=== PATIENT | male | born 1940 | race Caucasian/White ===

== ENCOUNTER 2016-11-28 21:27 | Inpatient (IN) | payer MEDICARE, OTHER ==
[~2016-11-28] VITALS: Ht 195.6 cm; Wt 93.1 kg
[2016-11-28 22:25] LABS: HEMOGLOBIN 15.6 g/dL (13.7-18.0)
[2016-11-28 22:38] LABS: BLOOD UREA NITROGEN 8 mg/dL (7-18)
[2016-11-28 22:41] LABS: ASPARTATE AMINO TRANSFERASE 13 U/L (15-37)
[2016-11-28] MEDS ORDERED: SODIUM CHLORIDE 0.9% 1,000ML IVBOLUS ONE (23:00)
[2016-11-28] MEDS ORDERED: LEVO100T5 PO (23:10)
[2016-11-29] VITALS (7 sets, daily range): BP systolic 94–116; BP diastolic 61–87
[2016-11-29] MEDS ORDERED: NS + 20MEQ KCL 1,000 ML IV SCH (00:09)
[2016-11-29] MEDS: NICOTINE 14MG/24 HR PATCH.TD24 TD SCH (00:30)
[2016-11-29] MEDS ORDERED: DOCUSATE 100 MG CAPSULE PO PRN (00:30)
[2016-11-29] MEDS ORDERED: ONDANSETRON 2MG/ML, 2ML IVP PRN (00:30)
[2016-11-29] MEDS ORDERED: BISACODYL 10 MG SUPP PR PRN (00:30)
[2016-11-29] MEDS ORDERED: ACETAMINOPHEN 325 MG TABLET PO PRN (00:30)
[2016-11-29 06:18] LABS: BLOOD UREA NITROGEN 6 mg/dL (7-18); PROSTATE SPECIFIC ANTIGEN 0.02 ng/mL (0.00-4.00)
[2016-11-29] MEDS ORDERED: DEXTROSE 4 GM TAB.CHEW PO PRN (08:30)
[2016-11-29] MEDS ORDERED: GLUCAGON 1 MG IM PRN (08:30)
[2016-11-29] MEDS ORDERED: LEVOTHYROXINE 100 MCG TABLET PO SCH (09:00)
[2016-11-29] MEDS: SODIUM CHLORIDE FLUSH 10ML SYR IVF SCH ×2 (09:10→21:19)
[2016-11-29] MEDS: NEOSPORIN OINT, 15GM TP SCH ×2 (13:02→21:18)
[2016-11-29] MEDS: DEXTROSE 50%, 50ML SYRINGE IVPush PRN (13:03)
[2016-11-29] MEDS: D5%-0.45% NACL 1,000 ML IV SCH (13:49)
[2016-11-30] MEDS: NICOTINE 14MG/24 HR PATCH.TD24 TD SCH ×2 (00:30→20:34)
[2016-11-30] MEDS: D5%-0.45% NACL 1,000 ML IV SCH ×3 (01:06→20:36)
[2016-11-30 01:58] VITALS: BP 112/61
[2016-11-30] MEDS: LEVOTHYROXINE 100 MCG TABLET PO SCH (05:42)
[2016-11-30 06:12] LABS: HEMOGLOBIN 15.2 g/dL (13.7-18.0)
[2016-11-30 06:26] LABS: BLOOD UREA NITROGEN 3 mg/dL (7-18)
[2016-11-30 07:48] VITALS: BP 125/50
[2016-11-30] MEDS: SODIUM CHLORIDE FLUSH 10ML SYR IVF SCH ×2 (07:51→20:35)
[2016-11-30] MEDS: NEOSPORIN OINT, 15GM TP SCH ×2 (07:51→20:34)
[2016-11-30 12:30] VITALS: BP 97/59
[2016-11-30 20:12] VITALS: BP 99/62
[2016-11-30 20:28] VITALS: BP 132/89
[2016-12-01 03:25] VITALS: BP 106/56
[2016-12-01 03:28] VITALS: BP 159/90
[2016-12-01 06:03] LABS: HEMOGLOBIN 14.3 g/dL (13.7-18.0)
[2016-12-01] MEDS: D5%-0.45% NACL 1,000 ML IV SCH ×2 (06:13→17:25)
[2016-12-01] MEDS: LEVOTHYROXINE 100 MCG TABLET PO SCH (06:14)
[2016-12-01 06:38] LABS: BLOOD UREA NITROGEN 6 mg/dL (7-18)
[2016-12-01 06:41] VITALS: BP 110/56
[2016-12-01] MEDS: NEOSPORIN OINT, 15GM TP SCH ×2 (10:17→20:59)
[2016-12-01] MEDS: CEFTRIAXONE PMX 1GM/50ML 50 ML IV SCH (10:17)
[2016-12-01] MEDS: SODIUM CHLORIDE FLUSH 10ML SYR IVF SCH ×2 (10:18→21:01)
[2016-12-01 13:17] VITALS: BP 115/62
[2016-12-01 19:56] VITALS: BP 97/57
[2016-12-01] MEDS: NICOTINE 14MG/24 HR PATCH.TD24 TD SCH (20:59)
[2016-12-02 02:18] VITALS: BP 116/68
[2016-12-02] MEDS: D5%-0.45% NACL 1,000 ML IV SCH ×2 (03:36→13:30)
[2016-12-02] MEDS: LEVOTHYROXINE 100 MCG TABLET PO SCH (05:42)
[2016-12-02 06:05] LABS: HEMOGLOBIN 14.4 g/dL (13.7-18.0)
[2016-12-02 06:28] LABS: ASPARTATE AMINO TRANSFERASE 15 U/L (15-37); BLOOD UREA NITROGEN 8 mg/dL (7-18)
[2016-12-02 08:00] VITALS: BP 112/57
[2016-12-02] MEDS: SODIUM CHLORIDE FLUSH 10ML SYR IVF SCH ×2 (09:00→21:14)
[2016-12-02] MEDS ORDERED: MIDAZOLAM 1 MG/ML, 5ML ONE ×2 (09:06→10:10)
[2016-12-02] MEDS ORDERED: FENTANYL PF 100 MCG/2ML ONE ×2 (09:06→09:47)
[2016-12-02] MEDS: CEFTRIAXONE PMX 1GM/50ML 50 ML IV SCH (11:19)
[2016-12-02] MEDS: NEOSPORIN OINT, 15GM TP SCH ×2 (11:20→21:14)
[2016-12-02] MEDS ORDERED: GADOBUTROL 10 MMOL/10 ML PFS ONE (11:55)
[2016-12-02 16:10] VITALS: BP 96/50
[2016-12-02 20:23] VITALS: BP 109/61
[2016-12-02] MEDS: NICOTINE 14MG/24 HR PATCH.TD24 TD SCH (21:00)
[2016-12-02] MEDS: HYDROcodone/APAP 5/325 TABLET PO PRN (21:13)
[2016-12-03 00:45] VITALS: BP_SYST 68; BP_SYST 70; BP_SYST 76; BP_DIAS 34; BP_DIAS 36; BP_DIAS 42
[2016-12-03 02:48] VITALS: BP 96/58
[2016-12-03] MEDS: LEVOTHYROXINE 100 MCG TABLET PO SCH (05:06)
[2016-12-03] MEDS: D5%-0.45% NACL 1,000 ML IV SCH ×2 (05:06→13:00)
[2016-12-03 05:43] LABS: HEMOGLOBIN 13.1 g/dL (13.7-18.0)
[2016-12-03 05:52] LABS: BLOOD UREA NITROGEN 9 mg/dL (7-18)
[2016-12-03 07:14] VITALS: BP 114/56
[2016-12-03] MEDS: CEFTRIAXONE PMX 1GM/50ML 50 ML IV SCH (07:46)
[2016-12-03] MEDS ORDERED: SODIUM CHLORIDE 0.9%, 500ML IVBOLUS ONE (08:00)
[2016-12-03] MEDS: NEOSPORIN OINT, 15GM TP SCH ×2 (09:00→20:39)
[2016-12-03] MEDS: SODIUM CHLORIDE FLUSH 10ML SYR IVF SCH ×2 (09:00→20:39)
[2016-12-03 13:05] VITALS: BP 122/64
[2016-12-03 19:36] VITALS: BP 101/61
[2016-12-03] MEDS: NICOTINE 14MG/24 HR PATCH.TD24 TD SCH (20:39)
[2016-12-04] MEDS: D5%-0.45% NACL 1,000 ML IV SCH ×3 (00:07→21:35)
[2016-12-04 03:20] VITALS: BP 135/74
[2016-12-04] MEDS: LEVOTHYROXINE 100 MCG TABLET PO SCH (06:16)
[2016-12-04 06:47] VITALS: BP 108/50
[2016-12-04 06:51] LABS: HEMOGLOBIN 14.4 g/dL (13.7-18.0)
[2016-12-04 06:58] LABS: BLOOD UREA NITROGEN 8 mg/dL (7-18)
[2016-12-04] MEDS: CEFTRIAXONE PMX 1GM/50ML 50 ML IV SCH (08:47)
[2016-12-04] MEDS: DRONABINOL 5 MG CAPSULE PO SCH ×2 (08:47→21:35)
[2016-12-04] MEDS: NEOSPORIN OINT, 15GM TP SCH ×2 (08:48→21:35)
[2016-12-04] MEDS: SODIUM CHLORIDE FLUSH 10ML SYR IVF SCH ×2 (08:48→21:35)
[2016-12-04 14:00] VITALS: BP 107/68
[2016-12-04 16:44] LABS: HIV 1&2 ANTIBODY SCREEN Nonreactive (Nonreactive); HIV-1 p24 ANTIGEN Nonreactive (Nonreactive)
[2016-12-04 19:38] VITALS: BP 110/66
[2016-12-04] MEDS: NICOTINE 14MG/24 HR PATCH.TD24 TD SCH (21:35)
[2016-12-05 04:17] VITALS: BP 99/63
[2016-12-05 06:04] LABS: HEMOGLOBIN 13.5 g/dL (13.7-18.0)
[2016-12-05] MEDS: LEVOTHYROXINE 100 MCG TABLET PO SCH (06:05)
[2016-12-05 06:25] LABS: BLOOD UREA NITROGEN 12 mg/dL (7-18)
[2016-12-05 08:03] VITALS: BP 103/64
[2016-12-05 09:05] VITALS: BP 111/71
[2016-12-05 09:10] VITALS: BP 100/53
[2016-12-05] MEDS: SODIUM CHLORIDE FLUSH 10ML SYR IVF SCH ×2 (09:31→21:48)
[2016-12-05] MEDS: NEOSPORIN OINT, 15GM TP SCH ×2 (09:31→21:47)
[2016-12-05] MEDS: DRONABINOL 5 MG CAPSULE PO SCH ×2 (09:31→21:47)
[2016-12-05] MEDS: SODIUM CHLORIDE 0.9% 1,000 ML IV SCH (12:53)
[2016-12-05 15:08] VITALS: BP 91/56
[2016-12-05 20:10] VITALS: BP 97/57
[2016-12-05] MEDS: NICOTINE 14MG/24 HR PATCH.TD24 TD SCH (21:00)
[2016-12-06 00:37] VITALS: BP 103/58
[2016-12-06] MEDS: SODIUM CHLORIDE 0.9% 1,000 ML IV SCH ×2 (01:42→21:29)
[2016-12-06 05:51] LABS: BLOOD UREA NITROGEN 13 mg/dL (7-18)
[2016-12-06 05:54] LABS: HEMOGLOBIN 14.4 g/dL (13.7-18.0)
[2016-12-06] MEDS: LEVOTHYROXINE 100 MCG TABLET PO SCH (06:23)
[2016-12-06 08:32] VITALS: BP_SYST 109; BP_SYST 116; BP_DIAS 65; BP_DIAS 73
[2016-12-06] MEDS: SODIUM CHLORIDE FLUSH 10ML SYR IVF SCH ×2 (09:21→21:29)
[2016-12-06] MEDS: NEOSPORIN OINT, 15GM TP SCH ×2 (09:21→21:32)
[2016-12-06] MEDS: DRONABINOL 5 MG CAPSULE PO SCH ×2 (09:21→21:00)
[2016-12-06] MEDS ORDERED: VANCOMYCIN PER PHARMACY MC PRN (12:30)
[2016-12-06] MEDS: PIPERACILLIN/TAZO/PMX 3.375GM 50 ML IV SCH ×2 (12:30→18:30)
[2016-12-06] MEDS ORDERED: PHARMACOKINETIC CONSULTATION MC ONE (13:00)
[2016-12-06] MEDS ORDERED: PHARMACOKINETIC MONITORING MC PRN (13:00)
[2016-12-06] MEDS: VANCOMYCIN 1,800 MG in SODIUM CHLORIDE 0.9% 250 ML IV SCH (14:58)
[2016-12-06 15:43] VITALS: BP 82/46
[2016-12-06 15:46] LABS: ABG COLLECTION SITE LEFT RADIAL; COLLATERAL CIRCULATION TESTING NORMAL
[2016-12-06 18:24] VITALS: BP 97/61
[2016-12-06] MEDS: NICOTINE 14MG/24 HR PATCH.TD24 TD SCH (21:00)
[2016-12-06 21:25] VITALS: BP 84/53
[2016-12-06] MEDS: LEVETIRACETAM 1,000 MG in SODIUM CHLORIDE 0.9% 100 ML IV SCH (23:50)
[2016-12-07] MEDS: PIPERACILLIN/TAZO/PMX 3.375GM 50 ML IV SCH ×4 (00:50→18:21)
[2016-12-07 02:23] VITALS: BP 89/48
[2016-12-07 05:24] VITALS: BP 95/59
[2016-12-07 05:52] LABS: BLOOD UREA NITROGEN 13 mg/dL (7-18)
[2016-12-07] MEDS: LEVOTHYROXINE 100 MCG TABLET PO SCH (06:04)
[2016-12-07 06:10] LABS: HEMOGLOBIN 13.3 g/dL (13.7-18.0)
[2016-12-07 06:34] VITALS: BP 94/57
[2016-12-07] MEDS: DRONABINOL 5 MG CAPSULE PO SCH ×2 (09:00→21:00)
[2016-12-07] MEDS: SODIUM CHLORIDE 0.9% 1,000 ML IV SCH ×2 (09:01→22:16)
[2016-12-07] MEDS: NEOSPORIN OINT, 15GM TP SCH ×2 (09:01→22:16)
[2016-12-07] MEDS: SODIUM CHLORIDE FLUSH 10ML SYR IVF SCH ×2 (09:01→22:17)
[2016-12-07] MEDS: VANCOMYCIN 1,800 MG in SODIUM CHLORIDE 0.9% 250 ML IV SCH (09:01)
[2016-12-07] MEDS: LEVETIRACETAM 1,000 MG in SODIUM CHLORIDE 0.9% 100 ML IV SCH ×2 (12:05→23:43)
[2016-12-07] MEDS ORDERED: SODIUM CHLORIDE 0.9% 1,000 ML IV SCH (12:30)
[2016-12-07 12:42] VITALS: BP 93/57
[2016-12-07 19:36] VITALS: BP 96/60
[2016-12-07] MEDS ORDERED: DEXTROSE 4 GM TAB.CHEW PO PRN (21:00)
[2016-12-07] MEDS ORDERED: GLUCAGON 1 MG IM PRN (21:00)
[2016-12-07] MEDS: NICOTINE 14MG/24 HR PATCH.TD24 TD SCH (21:00)
[2016-12-07] MEDS: DEXTROSE 50%, 50ML SYRINGE IVPush PRN (22:18)
[2016-12-08] MEDS: PIPERACILLIN/TAZO/PMX 3.375GM 50 ML IV SCH ×4 (00:35→21:55)
[2016-12-08] MEDS: VANCOMYCIN 1,800 MG in SODIUM CHLORIDE 0.9% 250 ML IV SCH ×2 (02:22→20:36)
[2016-12-08 03:24] VITALS: BP 96/55
[2016-12-08 05:25] LABS: BLOOD UREA NITROGEN 13 mg/dL (7-18)
[2016-12-08 06:40] VITALS: BP 98/60
[2016-12-08] MEDS: DEXTROSE 50%, 50ML SYRINGE IVPush PRN ×2 (08:21→12:40)
[2016-12-08] MEDS: DRONABINOL 5 MG CAPSULE PO SCH ×2 (09:00→20:40)
[2016-12-08] MEDS: SODIUM CHLORIDE FLUSH 10ML SYR IVF SCH ×2 (10:26→20:36)
[2016-12-08] MEDS: NEOSPORIN OINT, 15GM TP SCH ×2 (10:40→20:37)
[2016-12-08] MEDS: LEVOTHYROXINE 100 MCG TABLET PO SCH (10:40)
[2016-12-08 12:37] VITALS: BP 102/64
[2016-12-08] MEDS: LEVETIRACETAM 1,000 MG in SODIUM CHLORIDE 0.9% 100 ML IV SCH ×2 (13:16→23:40)
[2016-12-08] MEDS: SODIUM CHLORIDE 0.9% 1,000 ML IV SCH (13:16)
[2016-12-08 19:14] VITALS: BP 101/60
[2016-12-08] MEDS: NICOTINE 14MG/24 HR PATCH.TD24 TD SCH ×2 (20:37→20:54)
[2016-12-09 02:44] VITALS: BP 99/60
[2016-12-09] MEDS: PIPERACILLIN/TAZO/PMX 3.375GM 50 ML IV SCH ×4 (02:52→22:04)
[2016-12-09 06:36] VITALS: BP 105/55
[2016-12-09 07:01] LABS: HEMOGLOBIN 13.2 g/dL (13.7-18.0)
[2016-12-09 07:03] LABS: BLOOD UREA NITROGEN 12 mg/dL (7-18)
[2016-12-09] MEDS: DRONABINOL 5 MG CAPSULE PO SCH ×2 (08:49→21:00)
[2016-12-09] MEDS: SODIUM CHLORIDE FLUSH 10ML SYR IVF SCH ×2 (08:49→22:03)
[2016-12-09] MEDS: NEOSPORIN OINT, 15GM TP SCH ×2 (09:22→22:03)
[2016-12-09] MEDS: LEVOTHYROXINE 100 MCG TABLET PO SCH (09:22)
[2016-12-09] MEDS: LEVETIRACETAM 1,000 MG in SODIUM CHLORIDE 0.9% 100 ML IV SCH (12:00)
[2016-12-09 12:34] VITALS: BP 94/55
[2016-12-09] MEDS ORDERED: VANCOMYCIN 1,800 MG in SODIUM CHLORIDE 0.9% 250 ML IV SCH (14:00)
[2016-12-09] MEDS ORDERED: VANCOMYCIN 2,000 MG in SODIUM CHLORIDE 0.9% 500 ML IV SCH (14:30)
[2016-12-09 18:47] VITALS: BP 98/57
[2016-12-09] MEDS: NICOTINE 14MG/24 HR PATCH.TD24 TD SCH (21:00)
[2016-12-10] MEDS: LEVETIRACETAM 1,000 MG in SODIUM CHLORIDE 0.9% 100 ML IV SCH ×3 (00:31→23:18)
[2016-12-10] MEDS ORDERED: POTASSIUM CHLORIDE 20 MEQ PACKET NG ONE (02:30)
[2016-12-10 02:48] VITALS: BP 79/49
[2016-12-10 04:12] LABS: ABG COLLECTION SITE LEFT RADIAL; COLLATERAL CIRCULATION TESTING NORMAL
[2016-12-10] MEDS: PIPERACILLIN/TAZO/PMX 3.375GM 50 ML IV SCH ×5 (04:48→23:50)
[2016-12-10] MEDS ORDERED: MIDAZOLAM HCL 25 MG in SODIUM CHLORIDE 0.9% 245 ML IV PRN (05:34)
[2016-12-10] MEDS ORDERED: NOREPINEPHRINE 1 MG/ML, 4ML ONE (05:38)
[2016-12-10] MEDS: NOREPINEPHRINE 4 MG in SODIUM CHLORIDE 0.9% 246 ML IV PRN ×3 (05:45→23:18)
[2016-12-10] MEDS ORDERED: SODIUM CHLORIDE 0.9% 1,000ML IVBOLUS ONE (06:00)
[2016-12-10] MEDS ORDERED: PHARMACY MAY ADJ FOR RENAL FX MC SCH (06:00)
[2016-12-10] MEDS ORDERED: LIDOCAINE-MPF 1%, 2ML ENDO PRN (06:00)
[2016-12-10 08:12] LABS: FIO2 100 %
[2016-12-10 08:13] LABS: ABG COLLECTION SITE RIGHT RADIAL; COLLATERAL CIRCULATION TESTING NORMAL
[2016-12-10 08:35] LABS: BLOOD UREA NITROGEN 17 mg/dL (7-18)
[2016-12-10] MEDS: SODIUM CHLORIDE FLUSH 10ML SYR IVF SCH ×2 (09:00→20:25)
[2016-12-10] MEDS: NEOSPORIN OINT, 15GM TP SCH ×2 (09:00→22:19)
[2016-12-10] MEDS: DRONABINOL 5 MG CAPSULE PO SCH ×2 (09:34→21:00)
[2016-12-10] MEDS: LEVOTHYROXINE 100 MCG TABLET PO SCH (09:34)
[2016-12-10] MEDS ORDERED: VECURONIUM 10 MG ONE (10:59)
[2016-12-10] MEDS ORDERED: MIDAZOLAM 1 MG/ML, 5ML ONE (10:59)
[2016-12-10] MEDS ORDERED: MIDAZOLAM HCL IV PRN (11:30)
[2016-12-10] MEDS ORDERED: SODIUM CHLORIDE 0.9% IV PRN (11:30)
[2016-12-10] MEDS: NICOTINE 14MG/24 HR PATCH.TD24 TD SCH (20:25)
[2016-12-11] MEDS: HYDROcodone/APAP 5/325 TABLET PO PRN ×2 (02:20→09:12)
[2016-12-11 04:01] VITALS: BP 100/53
[2016-12-11 05:01] LABS: HEMOGLOBIN 12.4 g/dL (13.7-18.0)
[2016-12-11 05:13] LABS: BLOOD UREA NITROGEN 20 mg/dL (7-18)
[2016-12-11] MEDS: POLYETHYLENE GLYCOL 17 GM PACKET PO PRN (05:25)
[2016-12-11] MEDS: PIPERACILLIN/TAZO/PMX 3.375GM 50 ML IV SCH ×4 (05:25→23:50)
[2016-12-11] MEDS: LEVOTHYROXINE 100 MCG TABLET PO SCH (05:26)
[2016-12-11 06:00] LABS: ABG COLLECTION SITE RIGHT RADIAL; COLLATERAL CIRCULATION TESTING NORMAL
[2016-12-11] MEDS: SODIUM CHLORIDE FLUSH 10ML SYR IVF SCH ×2 (08:06→21:40)
[2016-12-11] MEDS: NEOSPORIN OINT, 15GM TP SCH ×2 (08:06→21:39)
[2016-12-11] MEDS: NOREPINEPHRINE 4 MG in SODIUM CHLORIDE 0.9% 246 ML IV PRN ×2 (08:06→17:25)
[2016-12-11] MEDS: DRONABINOL 5 MG CAPSULE PO SCH ×2 (08:08→21:39)
[2016-12-11] MEDS: LEVETIRACETAM 1,000 MG in SODIUM CHLORIDE 0.9% 100 ML IV SCH ×2 (11:17→23:12)
[2016-12-11] MEDS: NICOTINE 14MG/24 HR PATCH.TD24 TD SCH (21:40)
[2016-12-12] MEDS: HYDROcodone/APAP 5/325 TABLET PO PRN ×3 (03:37→21:03)
[2016-12-12 04:12] VITALS: BP 88/48
[2016-12-12 04:46] LABS: HEMOGLOBIN 11.7 g/dL (13.7-18.0)
[2016-12-12 04:58] LABS: BLOOD UREA NITROGEN 25 mg/dL (7-18)
[2016-12-12] MEDS: PIPERACILLIN/TAZO/PMX 3.375GM 50 ML IV SCH ×4 (05:23→23:29)
[2016-12-12] MEDS: LEVOTHYROXINE 100 MCG TABLET PO SCH (05:24)
[2016-12-12] MEDS: SODIUM CHLORIDE FLUSH 10ML SYR IVF SCH ×2 (09:00→21:03)
[2016-12-12] MEDS: QUETIAPINE 25MG TABLET PO SCH ×2 (09:30→22:17)
[2016-12-12] MEDS: DRONABINOL 5 MG CAPSULE PO SCH ×2 (09:30→21:03)
[2016-12-12] MEDS: NEOSPORIN OINT, 15GM TP SCH ×2 (09:30→21:04)
[2016-12-12] MEDS: POLYETHYLENE GLYCOL 17 GM PACKET PO PRN (10:00)
[2016-12-12] MEDS: LEVETIRACETAM 1,000 MG in SODIUM CHLORIDE 0.9% 100 ML IV SCH ×2 (11:57→23:05)
[2016-12-12] MEDS: NOREPINEPHRINE 4 MG in SODIUM CHLORIDE 0.9% 246 ML IV PRN (14:23)
[2016-12-12] MEDS: NICOTINE 14MG/24 HR PATCH.TD24 TD SCH (21:04)
[2016-12-13] MEDS: NOREPINEPHRINE 4 MG in SODIUM CHLORIDE 0.9% 246 ML IV PRN (03:06)
[2016-12-13] MEDS: HYDROcodone/APAP 5/325 TABLET PO PRN (03:10)
[2016-12-13 03:48] LABS: HEMOGLOBIN 11.8 g/dL (13.7-18.0)
[2016-12-13 03:58] LABS: BLOOD UREA NITROGEN 28 mg/dL (7-18)
[2016-12-13 04:00] VITALS: BP 120/52
[2016-12-13 05:06] LABS: ABG COLLECTION SITE RIGHT RADIAL; COLLATERAL CIRCULATION TESTING NORMAL
[2016-12-13] MEDS: PIPERACILLIN/TAZO/PMX 3.375GM 50 ML IV SCH ×2 (05:26→11:55)
[2016-12-13] MEDS: LEVOTHYROXINE 100 MCG TABLET PO SCH (05:27)
[2016-12-13] MEDS: SODIUM CHLORIDE FLUSH 10ML SYR IVF SCH (09:00)
[2016-12-13] MEDS: DRONABINOL 5 MG CAPSULE PO SCH (09:00)
[2016-12-13] MEDS: QUETIAPINE 25MG TABLET PO SCH (09:52)
[2016-12-13] MEDS: NEOSPORIN OINT, 15GM TP SCH (09:52)
[2016-12-13] MEDS: LEVETIRACETAM 1,000 MG in SODIUM CHLORIDE 0.9% 100 ML IV SCH (10:55)
[2016-12-13] MEDS ORDERED: LORazepam 2 MG/ML, 1ML IVPush PRN (14:00)
[2016-12-13] MEDS ORDERED: ATROPINE OPHTH SOLN 1%, 5ML PO PRN (14:00)
== END 2016-12-13 15:16 | disposition expired | DRG 981 ==
LOC: SUATTDRO 23:42 → ED 11-29 00:05 → 4EST 11-29 00:10 → CCU 12-10 04:22 → 3NW 12-13 14:21
PROVIDERS: ATTEND Internal Medicine
PROC: 0T9B70Z Drainage of Bladder with Drainage Device, Via Natural or Artificial Opening (ICD-10-PCS; 2016-11-29)
PROC: 0DH67UZ Insertion of Feeding Device into Stomach, Via Natural or Artificial Opening (ICD-10-PCS; 2016-12-02)
PROC: 5A1945Z Respiratory Ventilation, 24-96 Consecutive Hours (ICD-10-PCS; principal; 2016-12-10)
PROC: 0BH17EZ Insertion of Endotracheal Airway into Trachea, Via Natural or Artificial Opening (ICD-10-PCS; 2016-12-10)
PROC: 0BCJ8ZZ Extirpation of Matter from Left Lower Lung Lobe, Via Natural or Artificial Opening Endoscopic (ICD-10-PCS; 2016-12-10)
PROC: 0BCC8ZZ Extirpation of Matter from Right Upper Lung Lobe, Via Natural or Artificial Opening Endoscopic (ICD-10-PCS; 2016-12-10)
PROC: 0BCG8ZZ Extirpation of Matter from Left Upper Lung Lobe, Via Natural or Artificial Opening Endoscopic (ICD-10-PCS; 2016-12-10)
PROC: 0BCD8ZZ Extirpation of Matter from Right Middle Lung Lobe, Via Natural or Artificial Opening Endoscopic (ICD-10-PCS; 2016-12-10)
PROC: 0BCF8ZZ Extirpation of Matter from Right Lower Lung Lobe, Via Natural or Artificial Opening Endoscopic (ICD-10-PCS; 2016-12-10)
PROC: 02HV33Z Insertion of Infusion Device into Superior Vena Cava, Percutaneous Approach (ICD-10-PCS; 2016-12-12)
PROC: B548ZZA Ultrasonography of Superior Vena Cava, Guidance (ICD-10-PCS; 2016-12-12)
DX: S06.5X0A Traumatic subdural hemorrhage without loss of consciousness, initial encounter (principal); E43 Unspecified severe protein-calorie malnutrition; J69.0 Pneumonitis due to inhalation of food and vomit; G93.41 Metabolic encephalopathy; J96.01 Acute respiratory failure with hypoxia; E87.1 Hypo-osmolality and hyponatremia; R29.6 Repeated falls; E86.0 Dehydration; D18.1 Lymphangioma, any site; E16.2 Hypoglycemia, unspecified; E03.9 Hypothyroidism, unspecified; R74.8 Abnormal levels of other serum enzymes; F10.10 Alcohol abuse, uncomplicated; F17.200 Nicotine dependence, unspecified, uncomplicated; I07.1 Rheumatic tricuspid insufficiency; I27.2 Other secondary pulmonary hypertension; J32.0 Chronic maxillary sinusitis; W18.39XA Other fall on same level, initial encounter; J44.9 Chronic obstructive pulmonary disease, unspecified; M48.06 Spinal stenosis, lumbar region; R13.10 Dysphagia, unspecified; Z66 Do not resuscitate; Z68.24 Body mass index [BMI] 24.0-24.9, adult; Y93.89 Activity, other specified; Y92.098 Other place in other non-institutional residence as the place of occurrence of the external cause
CPT/HCPCS: 31624; 36415; 36569; 36600; 70450; 70553; 71010; 71250; 72158; 74000; 74176; 74230; 76937; 77001; 80048; 80053; 80202; 81001; 82040; 82533; 82550; 82570; 82607; 82746; 82803; 82805; 82962; 83605; 83735; 83880; 83930; 83935; 84100; 84145; 84153; 84300; 84443; 84478; 85025; 85651; 86141; 86703; 87070; 87081; 87205; 87324; 87899; 93005; 93306; 94002; 94003; 94640; 99156; 99157; A9585; J0696; J1953; J2250; J2543; J3010; J3370; J3480; J7060; Q0167; C1751; G0435; J2270; J7030; J7040; J7050